=== PATIENT | male | born 1995 | race Two or more races ===

== ENCOUNTER 2018-07-13 13:11 | Emergency (ER) | payer MEDICAID ==
[~2018-07-13] VITALS: Ht 177.8 cm; Wt 68.0 kg
[2018-07-13] MEDS ORDERED: NKM (13:20)
--- NOTE | 2018-07-13 13:20 | NUR ---
ED Nurse Note: PT WALKED IN TO ER TODAY FROM HOME. AOX4. PT C/O LEFT WRIST PAIN, 4/10 AFTER FALLING OFF OF SKATEBOARD X YESTERDAY. PT STATES HE ALSO HAD A FALL ABOUT A MONTH AGO AND LANDED ON THE SAME WRIST. FULL ROM OF EXTREMITY, SENSATION AND CIRCULATION INTACT, CAP REFILL <3 SECONDS, AND 5/5 MUSCLE STRENGTH OF EXTREMITY. NO SWELLING OR REDNESS NOTED. SKIN CLEAN, DRY, AND INTACT.
[2018-07-13 13:21] VITALS: BP 115/69
--- NOTE | 2018-07-13 13:26 | Emergency Room Report ---
History of Present Illness General Chief Complaint: Upper Extremity Injury Source: Patient Present Illness HPI 23-year-old male patient presents ER complaining of left wrist pain for the past 2 days. Reports skateboarding yesterday when he "flew forward" off of his skateboard when he tripped over a sidewalk. Denies hitting his head or loss consciousness. Reports bilateral FOOSH injury. Reports history of similar injury 1 month ago, states did not have x-ray or imaging done but states it was "injured". Reports that he has been wearing a wrist brace since that time. Reports he is right-hand dominant. States has not taken any medication for relief of symptoms. Denies other aggravating or relieving factors. Allergies: Coded Allergies: No Known Allergies (Unverified , 07/13/18) Patient History Past Medical History: see triage record Reviewed Nursing Documentation: PMH: Agreed; PSxH: Agreed Nursing Documentation-[facility] Past Medical History: No Stated History Review of Systems All Other Systems: negative except mentioned in HPI Physical Exam Vital Signs Date Time Temp Pulse Resp B/P (MAP) Pulse Ox O2 Delivery O2 Flow Rate FiO2 07/13/18 13:17 97.9 60 16 115/69 99 Room Air Sp02 EP Interpretation: reviewed, normal General Appearance: well appearing, no apparent distress, alert, GCS 15, non- toxic Head: normocephalic, atraumatic Eyes: bilateral eye normal inspection, bilateral eye PERRL ENT: hearing grossly normal, normal pharynx, no angioedema, normal voice, uvula midline, moist mucus membranes Neck: full range of motion, no bony tend Respiratory: lungs clear, normal breath sounds, no rhonchi, no respiratory distress, no accessory muscle use, no wheezing, speaking full sentences Cardiovascular #1: regular rate, rhythm, no edema Cardiovascular #2: 2+ radial (R), 2+ radial (L) Musculoskeletal: back normal, digits/nails normal, gait/station normal, normal range of motion, other - NVI, cap refill <2seconds, no deformity, no snuffbox tenderness, tender - Left wrist on dorsum and palmar aspects Psychiatric: mood/affect normal Skin: no rash Medical Decision Making PA Attestation Dr. Muñoz is my supervising Physician whom patient management has been discussed with. Diagnostic Impression: Primary Impression: Wrist sprain ER Course Pt. presents to the ED c/o left wrist pain. Ddx considered but are not limited to fracture, sprain, strain, contusion, dislocation. No erythema, no warmth to touch, no fever, nontoxic appearing, low suspicion for septic joint. Soft compartments, no pulselessness, no pallor, no paresthesias, low suspicion for compartment syndrome at this time. Vital signs: are WNL, pt. is afebrile Ordered X-ray and pain medication. ER COURSE Provided with pain medication. An X-ray of the left wrist shows negative for acute disease per the preliminary reading. Likely sprain. Splint was applied to the left wrist and was checked afterwards by me showing good alignment and support with distal neurovascular functioning intact. Crutches provided. Patient instructed on RICE method: rest, ice, compression, elevation. Patient instructed on rest, ice and heat. Patient instructed to be WBAT Contact information for orthopedic urgent care provided, follow-up with urgent care if unable to followup with primary care provider and get referral to mapping specialist. Followup with primary care provider. Discuss referral to ortho/pain management/ PT as needed. Discuss further imaging with MRI/CT as needed. DISCHARGE: At this time pt. is stable for d/c to home. Patient is resting comfortably, in no acute distress, nontoxic appearing, talking without difficulty. Will provide printed patient care instructions, and any necessary prescriptions. Patient instructed to follow with primary care provider in 3 - 5 days and to request further follow-up as needed. Care plan and follow up instructions have been discussed with the patient prior to discharge. Take medications as directed. Patient questions asked and answered. Patient reports understanding and agreement to treatment plan. ER precautions given, patient instructed to return to ER immediately for any new or worsening of symptoms. - Please note that this Emergency Department Report was dictated using [employer] photographer technology software, occasionally this can lead to erroneous entry secondary to interpretation by the dictation equipment. Other X-Ray Diagnostic Results Other X-Ray Diagnostic Results : X-Ray ordered: Left wrist # of Views/Limited Vs Complete: 3 View Indication: Pain EP Interpretation: Yes PA Xray: Interpretation reviewed, by supervising MD, and agrees with findings. Interpretation: no dislocation, no soft tissue swelling, no fractures Impression: No acute disease PA Scribe Text Ajay Sanford PA-C Last Vital Signs Date Time Temp Pulse Resp B/P (MAP) Pulse Ox O2 Delivery O2 Flow Rate FiO2 07/13/18 13:21 97.9 60 16 115/69 99 Room Air Status: improved Disposition: HOME, SELF-CARE Condition: Stable Scripts Ibuprofen* (MOTRIN*) 600 Mg Tablet 600 MG ORAL Q8H PRN for For Pain, #30 TAB 0 Refills Prov: Moustapha Sanford 07/13/18 Patient Instructions: Wrist Sprain Additional Instructions: Patient instructed to follow up with primary care provider and discuss further referral to orthopedics/physical therapy/pain management as needed. If unable to followup with PCP, followup with orthopedic urgent care in 5-7 days , call to schedule appointment. Patient instructed on RICE method: rest, ice, compression, elevation. Patient instructed to WBAT. Wear helmet while skateboarding. Take medications as directed. Patient questions asked and answered. ER precautions given, patient instructed to return to ER immediately for any new or worsening of symptoms. [facility] [address] [facility] [address] [facility], [address] [email or web address] Moustapha Sanford Jul 13, 2018 13:26
[2018-07-13] MEDS ORDERED: IBUPROFEN600 MG ORAL (14:04)
[2018-07-13 14:09] VITALS: BP 115/69
--- NOTE | 2018-07-13 14:09 | NUR ---
ER DISCHARGE NOTE: Patient is cleared to be discharged per ERMD, pt is aox4, on room air, with stable vital signs. pt was given dc and prescription instructions, pt was able to verbalize understanding, pt id band removed. pt is able to ambulate with steady gait. pt took all belongings.
--- NOTE | 2018-07-13 17:13 | Diagnostic Imaging Report ---
Clinical Indication:Left wrist pain Technique: 3 views of the left wrist Comparison: None Findings: A cyst is seen in the upper pole of the scaphoid. No acute fractures. No dislocations. The joint spaces are preserved. Impression: No acute process
== END 2018-07-13 14:08 | disposition home or self-care (01) ==
LOC: EMR 13:47
DX: S63.502A Unspecified sprain of left wrist, initial encounter (principal); W19.XXXA Unspecified fall, initial encounter; Y93.51 Activity, roller skating (inline) and skateboarding; Y92.9 Unspecified place or not applicable
CPT/HCPCS: 99283